=== PATIENT | male | born 1985 | race African-American/Black ===

== ENCOUNTER 2017-01-04 20:54 | Emergency (ER) | payer SELFPAY ==
[~2017-01-04] VITALS: Ht 170.2 cm; Wt 79.3 kg
[~2017-01-04 20:54] MED LIST: SULF1TAB47 PO; Z.0.NO CURRENT MEDS
[2017-01-04 21:01] VITALS: BP 131/85; PULSE 89; RESP 14; TEMP 98.4; O2SAT 99
--- NOTE | 2017-01-04 21:32 | PD ---
HPI Chief Complaint: Injury Time Seen by Provider: 21:10 Travel History International Travel<30 days: No Contact w/Intl Traveler<30days: No Traveled to known affect area: No History of Present Illness HPI 31-year-old male presents to the emergency room for evaluation of right posterior heel/ankle pain and swelling after injuring it just prior to arrival. Patient states he was taking off for a sprint when he heard and felt a pop in his posterior right ankle. He had immediate pain. Patient hasn't been able to walk on it since. Reports pain with range of motion of the ankle. Patient came straight emergency room and has not taken anything for pain. Denies chronic medical conditions or daily medications. PFSH Past Medical History Medical History: Denies Significant Hx Diminished Hearing: No Immunizations Current: No Tetanus Vaccination: Unknown Influenza Vaccination: No Past Surgical History Surgical History: No Previous Surgery Social History Alcohol Use: Yes ("once a week a few beers") Tobacco Use: No Substance Use: No Allergies-Medications (Allergen,Severity, Reaction): Coded Allergies: No Known Allergies (Verified , 01/04/17) Reported Meds & Prescriptions Reported Meds & Active Scripts Active No Active Prescriptions or Reported Medications Review of Systems Except as stated in HPI: all other systems reviewed are Neg Physical Exam Narrative GENERAL: Well-nourished, well-developed male in acute distress. Afebrile. SKIN: Focused skin assessment warm/dry. Mild ecchymosis of the right posterior ankle HEAD: Normocephalic. EYES: No scleral icterus. No injection or drainage. NECK: Supple, trachea midline. No JVD or lymphadenopathy. CARDIOVASCULAR: Regular rate and rhythm without murmurs, gallops, or rubs. RESPIRATORY: Breath sounds equal bilaterally. No accessory muscle use. EXTREMITY: Right ankle is extremely tender to palpation approximately 5 cm above the Achilles tendon insertion. 2+ dorsalis pedis pulse in the right. Moderate edema of the right lower extremity. Positive Dominguez's test. Data Data Last Documented VS Vital Signs Date Time Temp Pulse Resp B/P Pulse Ox O2 Delivery O2 Flow Rate FiO2 01/04/17 23:25 18 01/04/17 21:05 01/04/17 21:01 98.4 89 99 Room Air Orders Ankle, Limited (Ap&Lat) (01/04/17 ) Mri Joint Ankle W/O Contrast (01/04/17 ) Splint Or Brace Apply/Monitor (01/04/17 22:00) Crutches (01/04/17 22:00) Mandatory Outpatient Referral (01/04/17 22:00) Ibuprofen (Motrin) (01/04/17 22:15) Fiberglass Short Leg Splint Ad (01/04/17 ) [facility] Medical Decision Making Medical Screen Exam Complete: Yes Emergency Medical Condition: Yes Medical Record Reviewed: Yes Differential Diagnosis Tendon rupture, tendinitis, contusion, fracture Narrative Course 31-year-old male presents to the emergency room for evaluation of right ankle pain, swelling, and bruising after injuring it just prior to arrival. Patient took off from a sprint and felt a sharp, painful pop to the posterior right ankle. Physical exam reveals moderate ecchymosis and edema over the right posterior ankle and extreme tenderness to palpation approximately 4 cm above the Achilles insertion. Patient has positive Dominguez test. Right lower extremity is neurovascularly intact. He was given ibuprofen and ice for pain. X-ray shows no acute bony abnormality. Patient prefers not to stay in the hospital tonight. I spoke to the orthopedic surgeon telephone appointment clerk, Dr. Donato, who recommends MRI and follow-up in his office tomorrow. It was stressed to the patient the importance of follow-up to ensure proper treatment and avoid disability. Posterior short leg applied and patient given crutches. MRI shows complete disruption with 1.4 cm of retraction. He is stable for discharge. Diagnosis Primary Impression: Rupture of right Achilles tendon Qualified Code: S86.011A - Rupture of right Achilles tendon, initial encounter Referrals: Donte Donato MD Patient Instructions: Achilles Tendon Rupture (ED), General Instructions Additional Instructions: Rest and drink plenty of fluids. Use crutches and keep splinted until follow-up Take ibuprofen with food as directed, as needed for pain. Elevate and apply ice to the affected area for 20 minutes at a time, as needed for pain and swelling. Follow-up with Dr. Donato tomorrow at 8:30 AM at his [address] [place] [address] office. Return to the emergency room for worsening symptoms. Med/Other Pt SpecificInfo: Prescription(s) given Scripts No Active Prescriptions or Reported Meds Disposition: 01 DISCHARGE HOME Condition: Stable Maria Guadalupe Montes Jan 04, 2017 21:32
--- NOTE | 2017-01-04 21:45 | RADRPT ---
EXAM DATE/TIME: 01/04/2017 21:18 [facility] COMPARISON: No previous studies available for comparison. INDICATIONS : Right ankle pain. MEDICAL HISTORY : None. SURGICAL HISTORY : None. ENCOUNTER: Initial ACUITY: 1 day PAIN SCORE: 5/10 LOCATION: Right ankle FINDINGS: Two view examination was performed of the right ankle. The bony structures are in normal alignment. No evidence of fracture, dislocation, or soft tissue swelling. No radiopaque foreign bodies are see n. Bony mineralization is normal. If there is clinical concern for Achilles tendon rupture, MRI of t he Achilles tendon may be helpful in this patient. CONCLUSION: 1. No acute fracture or dislocation. 2. If there is clinical concern for Achilles tendon rupture, MRI of the Achilles tendon may be helpfu l in this patient. Enrique Bains MD on January 04, 2017 at 21:39 Board Certified Radiologist. This report was verified electronically.
[2017-01-04] MEDS ORDERED: IBUPROFEN 800 MG TAB PO ONE (22:15)
--- NOTE | 2017-01-04 23:16 | RADRPT ---
EXAM DATE/TIME: 01/04/2017 22:43 [facility] COMPARISON: No previous studies available for comparison. INDICATIONS : Trauma. Injury to achilles tendon while playing basketball. MEDICAL HISTORY : None. SURGICAL HISTORY : None. ENCOUNTER: Initial ACUITY: 1 day PAIN SCORE: 2/10 LOCATION: Right heel. TECHNIQUE: Multiplanar, multisequence MRI examination was performed without contrast. FINDINGS: BONE/CARTILAGE: Bone marrow signal is homogeneous. Articular cartilage signal is within normal limits. TENDONS: There is a complete tear of the Achilles tendon approximately 5.5 cm proximal to the calcaneal insert ion. The proximal Achilles tendon is retracted with separation measuring 1.4 cm. Moderate amount of surrounding edema. LIGAMENTS: The lateral and medial ligament complexes are intact. MISCELLANEOUS: The plantar aponeurosis is intact. The tarsal tunnel is within normal limits. Small ankle effusion. CONCLUSION: Complete disruption of the mid Achilles tendon with 1.4 cm retraction. Irving Hutson MD on January 04, 2017 at 23:11 Board Certified Radiologist. This report was verified electronically.
[2017-01-04 23:25] VITALS: RESP 18
[2017-01-07] MEDS ORDERED: HYDR-3288 PO (16:18)
== END 2017-01-04 23:46 | disposition home or self-care (01) ==
LOC: PHEFT 20:54
DX: S86.011A Strain of right Achilles tendon, initial encounter (principal); X58.XXXA Exposure to other specified factors, initial encounter
CPT/HCPCS: 29515; 73600; 73721; 99284; E0113

== ENCOUNTER → 2017-01-07 | Day surgery (SDC) | payer SELFPAY ==
[~2017-01-07] VITALS: Ht 170.2 cm; Wt 77.0 kg
[~2017-01-07] MED LIST changes: +*MEPERIDINE 25 MG INJ VIAL PERIprocedural Use ONLY ONE; +ACETAMINOPHEN 1000 MG/100 ML VIAL IV ONE; +ACETAMINOPHEN/HYDROcodone 325 MG/7.5 MG TAB PO PRN; +BUPIVACAINE/EPINEPHRINE 0.25% 50 ML VIAL INFIL ONE; +CHLORHEXIDINE GLUCONATE 2 % 1 PACK (2 CLOTHS) TOPICAL PRN; +CHLORHEXIDINE GLUCONATE 4% SOLN 120 ML BTL TOPICAL SCH; +DEXAMETHASONE SOD PHOS 4 MG/ML VIAL ONE; +GENTAMICIN SULFATE 80 MG/2 ML VIAL ONE; +HYDR-3288 PO; +INSULIN HUMAN REGULAR 1,000 UNITS/10 ML VIAL SQ PRN; +KETOROLAC TROMETHAMINE 60 MG/2 ML (IM) VIAL IM ONE; +LACTATED RINGER'S 1000 ML IV PRN; +METOPROLOL TARTRATE 25 MG TAB PO PRN; +MIDAZOLAM HCL 2 MG/2 ML VIAL ONE; +MORPHINE SULFATE 4 MG/ML INJ IV PUSH PRN; +MORPHINE SULFATE 8 MG/ML INJ IV PUSH PRN; +NEOSTIGMINE 3 MG/3 ML SYR IV ONE; +ONDANSETRON HCL 4 MG/2 ML VIAL IV PUSH ONE; +POVIDONE IODINE 5% (ANTISEPSIS KIT) 4 APPLICATIONS EACH NARE PRN; +POVIDONE IODINE 7.5% SCRUB 118 ML BOTTLE TOPICAL SCH; +PROPOFOL 200 MG/20 ML AMP IV ONE; +SODIUM CHLORID 0.9% 500 ML IV PRN; +SODIUM CHLORIDE 0.9% FLUSH 10 ML FLUSH IV FLUSH PRN; +SODIUM CHLORIDE 0.9% FLUSH 10 ML FLUSH IV FLUSH SCH; -SULF1TAB47 PO; -Z.0.NO CURRENT MEDS; +ceFAZolin 2 GM PREMIX 50 ML IV SCH; +fentaNYL CITRATE 250 MCG/5 ML AMP ONE
[2017-01-07 11:47] VITALS: BP 133/75; PULSE 62; RESP 16; TEMP 98; O2SAT 100
--- NOTE | 2017-01-07 16:17 | PD.OP ---
cc: Donte Donato MD Operative Report Date of Surgery: Jan 07, 2017 Preoperative Diagnosis: Right ankle Achilles tendon rupture Postoperative Diagnosis: Same Procedure: Right ankle open repair of Achilles tendon rupture Anesthesia: Gen. Surgeon: Donte Donato Clerk Of Works(s): GUS Fragoso The surgical procedure was assisted by my Advanced Registered Nurse Practitioner. My DIRECTOR BIOMEDICAL ENGINEERING presence was necessary throughout this case for the manipulation and positioning of the surgical extremity. My DIRECTOR BIOMEDICAL ENGINEERING was assisting me throughout the duration of this procedure. The skill set of an Advance Registered Nurse Practitioner was medically necessary to complete this procedure. During the surgical case, the general maintenance technician was working at the back table and the Advance Registered Nurse Practitioner was directly assisting me. Operation and Findings: Tourniquet time: 0 minutes at 250 mmHg of pressure Estimated blood loss: 30 cc The patient received intravenous Ancef. After the appropriate anesthesia was administered, the patient was placed in a prone position with well-padded bony prominences. The leg was prepped and draped in the usual sterile fashion. We made a standard posterior incision which was off of the medial side. After incising through skin and deep tissue we immediately identified a full- thickness midsubstance Achilles tendon rupture. The edges of the tendon were retracted. We irrigated. We incised through paratenon. We repaired the tendon by placing 2 individual #2 fiber wires in the distal stump. We did so in a baseball stitch fashion such that we had 4 ends of the suture coming out of this side of the stump. We repeated the same process on the proximal stump. We then reduced the tendon back to anatomic tension. We then tied each of the sutures together. We took the ends of the sutures and tied them together as well. We felt we had a very good repair. The wound was thoroughly irrigated. We closed as much of the deep tissue over the tendon as possible using 2-0 Vicryl. We closed skin with 2-0 Vicryl followed by 3-0 nylon. The patient was placed into a posterior splint in slight equinus. The postoperative plan is for nonweightbearing to the extremity. Donte Donato MD Jan 07, 2017 16:17
[2017-01-07 18:00] VITALS: BP 138/60; PULSE 63; RESP 16; TEMP 98.2; O2SAT 100
== END | disposition home or self-care (01) ==
LOC: HSDC 10:58
PROVIDERS: ATTEND Orthopaedic Surgery
DX: S86.011A Strain of right Achilles tendon, initial encounter (principal); X58.XXXA Exposure to other specified factors, initial encounter; Y93.67 Activity, basketball
CPT/HCPCS: 01472; 27650; J0131; J0690; J1100; J1580; J1885; J2175; J2250; J2405; J2710; J3010; J7120

== ENCOUNTER → 2017-02-18 | Outpatient (CLI) | payer SELFPAY ==
[~2017-02-18] MED LIST changes: -*MEPERIDINE 25 MG INJ VIAL PERIprocedural Use ONLY ONE; -ACETAMINOPHEN 1000 MG/100 ML VIAL IV ONE; -ACETAMINOPHEN/HYDROcodone 325 MG/7.5 MG TAB PO PRN; -BUPIVACAINE/EPINEPHRINE 0.25% 50 ML VIAL INFIL ONE; -CHLORHEXIDINE GLUCONATE 2 % 1 PACK (2 CLOTHS) TOPICAL PRN; -CHLORHEXIDINE GLUCONATE 4% SOLN 120 ML BTL TOPICAL SCH; -DEXAMETHASONE SOD PHOS 4 MG/ML VIAL ONE; -GENTAMICIN SULFATE 80 MG/2 ML VIAL ONE; -INSULIN HUMAN REGULAR 1,000 UNITS/10 ML VIAL SQ PRN; -KETOROLAC TROMETHAMINE 60 MG/2 ML (IM) VIAL IM ONE; -LACTATED RINGER'S 1000 ML IV PRN; -METOPROLOL TARTRATE 25 MG TAB PO PRN; -MIDAZOLAM HCL 2 MG/2 ML VIAL ONE; -MORPHINE SULFATE 4 MG/ML INJ IV PUSH PRN; -MORPHINE SULFATE 8 MG/ML INJ IV PUSH PRN; -NEOSTIGMINE 3 MG/3 ML SYR IV ONE; -ONDANSETRON HCL 4 MG/2 ML VIAL IV PUSH ONE; -POVIDONE IODINE 5% (ANTISEPSIS KIT) 4 APPLICATIONS EACH NARE PRN; -POVIDONE IODINE 7.5% SCRUB 118 ML BOTTLE TOPICAL SCH; -PROPOFOL 200 MG/20 ML AMP IV ONE; -SODIUM CHLORID 0.9% 500 ML IV PRN; -SODIUM CHLORIDE 0.9% FLUSH 10 ML FLUSH IV FLUSH PRN; -SODIUM CHLORIDE 0.9% FLUSH 10 ML FLUSH IV FLUSH SCH; -ceFAZolin 2 GM PREMIX 50 ML IV SCH; -fentaNYL CITRATE 250 MCG/5 ML AMP ONE
== END ==
LOC: HORT 13:50
PROVIDERS: ATTEND Orthopaedic Surgery Sports Medicine
DX: Z46.89 Encounter for fitting and adjustment of other specified devices (principal); S86.011A Strain of right Achilles tendon, initial encounter
CPT/HCPCS: L2114